=== PATIENT | male | born 1990 | race Asian ===

== ENCOUNTER 2024-03-09 10:04 | Outpatient (CLI) | payer MEDICAID, SELFPAY | END 2024-03-09 10:05 | disposition home or self-care (01) | PROVIDERS: PCP Family Medicine; Visit Provider Family Medicine | DX: E55.9 Vitamin D deficiency, unspecified (principal); R20.2 Paresthesia of skin; Z13.228 Encounter for screening for other metabolic disorders; Z13.21 Encounter for screening for nutritional disorder; Z13.29 Encounter for screening for other suspected endocrine disorder; Z13.0 Encounter for screening for diseases of the blood and blood-forming organs and certain disorders involving the immune mechanism | CPT/HCPCS: 80053; 82306; 82607; 84443; 85025 ==

== ENCOUNTER 2024-05-03 16:37 | Outpatient (CLI) | payer MEDICAID, SELFPAY | END 2024-05-03 16:38 | disposition home or self-care (01) | PROVIDERS: PCP Family Medicine; Visit Provider Family Medicine | DX: M25.50 Pain in unspecified joint (principal) | CPT/HCPCS: 86039; 86140; 86431 ==

== ENCOUNTER 2024-05-19 17:40 | Outpatient (CLI) | payer MEDICAID, SELFPAY ==
--- NOTE | 2024-05-19 18:00 | CRLHL7_ITS ---
For Patients: As a result of the Century Cures Act, medical imaging exams and procedure reports are released immediately into your electronic medical record. You may view this report before your referring provider. If you have questions, please contact your health care provider. INDICATION: Scrotal pain COMPARISON: none TECHNIQUE: Presley scale imaging was performed of the scrotum. In addition color Doppler and spectral Doppler analysis was performed of the testes. FINDINGS: The testes demonstrate normal arterial and venous blood flow on color Doppler and spectral Doppler analysis. Microlithiasis is present throughout the left testicle without discernible mass. The right testis measures 3.5 x 1.7 x 2.5 cm in size and the left testis measures 5.2 x 2.9 x 3.0 cm. The epididymis appears normal bilaterally. There is no evidence of a hydrocele or varicocele. IMPRESSION: The left testicle is larger than the right testicle and has diffuse microlithiasis. No discernible testicular mass. No torsion. Urology follow-up recommended. Dictated by Chad Barrientos MD @ 05/20/2024 7:49:59 AM (Electronically Signed)
== END 2024-05-19 17:41 | disposition home or self-care (01) ==
LOC: US 17:41
PROVIDERS: PCP Family Medicine; Visit Provider Family Medicine
DX: N50.82 Scrotal pain (principal)
CPT/HCPCS: 76870; 93976